=== PATIENT | male | born 1990 | race American Indian/Alaskan Native ===

== ENCOUNTER 2018-05-09 15:53 | Emergency (ER) | payer OTHER ==
[2018-05-09 16:10] VITALS: BP 133/85; PULSE 95; RESP 18; TEMP 99; O2SAT 98
--- NOTE | 2018-05-09 16:31 | ED PDOC ---
Arrival/HPI - General Chief Complaint: Abdominal Pain Time Seen by Provider: 05/09/18 16:07 EM Caveat: Uncooperative - History of Present Illness Narrative History of Present Illness (Text): 27 y/o male with PMH of schizophrenia presents to the ED c/o abdominal pain x 1 day. Pt is alert and oriented x 3 but history is incredibly vague and inconsistent. Pt repeatededly asking for food, states he has nowhere to stay. Attributes abdominal pain to hunger. Denies alcohol or drug use today. Denies SI, HI, auditory or visual hallucination, fever, chills, nausea, vomiting, diarrhea, back pain, urinary symptoms, testicular pain, testicular swelling, chest pain, SOB, or any other associated complaints. Past Medical History - Provider Review Nursing Documentation Reviewed: Yes - Psychiatric Hx Depression: Yes Hx Schizophrenia: Yes Hx Substance Use: Yes ([facility]) Family/Social History - Physician Review Nursing Documentation Reviewed: Yes Family/Social History: No Known Family HX Smoking Status: Current Some Days Smoker Hx Alcohol Use: Yes Frequency of alcohol use: Socially Hx Substance Use: Yes ([facility]) Allergies/Home Meds Allergies/Adverse Reactions: Allergies No Known Allergies Allergy (Verified 05/09/18 15:56) Home Medications: Home Meds Medication Instructions Recorded Confirmed No Known Home Med 05/09/18 05/09/18 Review of Systems - Physician Review All systems were reviewed & negative as marked: Yes - Review of Systems Systems not reviewed;Unavailable: Uncooperative Constitutional: Normal. absent: Fevers Eyes: Normal. absent: Vision Changes ENT: Normal. absent: Sore Throat, Sinus Congestion Respiratory: Normal. absent: SOB, Cough Cardiovascular: Normal. absent: Chest Pain, Palpitations Gastrointestinal: Abdominal Pain. absent: Nausea, Vomiting Genitourinary Male: Normal. absent: Dysuria, Frequency Musculoskeletal: Normal. absent: Back Pain, Neck Pain Skin: Normal. absent: Rash, Pruritis Neurological: Normal. absent: Headache, Dizziness Endocrine: Normal Hemo/Lymphatic: Normal Psychiatric: Normal Physical Exam Vital Signs Reviewed: Yes Vital Signs Temp Pulse Resp BP Pulse Ox 05/09/18 15:54 99 F 95 H 18 133/85 98 Temperature: Afebrile Blood Pressure: Normal Pulse: Regular Respiratory Rate: Normal Appearance: Positive for: Well-Appearing, Non-Toxic, Comfortable Pain Distress: None Mental Status: Positive for: Alert and Oriented X 3 - Systems Exam Head: Present: Atraumatic, Normocephalic Pupils: Present: PERRL Extroacular Muscles: Present: EOMI Conjunctiva: Present: Normal Mouth: Present: Moist Mucous Membranes Neck: Present: Normal Range of Motion. No: Meningeal Signs, MIDLINE TENDERNESS Respiratory/Chest: Present: Clear to Auscultation, Good Air Exchange. No: Respiratory Distress, Accessory Muscle Use Cardiovascular: Present: Regular Rate and Rhythm, Normal S1, S2. No: Murmurs Abdomen: Present: Tenderness (mild epigastric), Normal Bowel Sounds. No: Distention, Peritoneal Signs, Rebound, Guarding Back: No: CVA Tenderness Upper Extremity: Present: Normal ROM, NORMAL PULSES, Neurovascularly Intact, Capillary Refill < 2s Lower Extremity: Present: NORMAL PULSES, Normal ROM, Neurovascularly Intact, Capillary Refill < 2 s Neurological: Present: GCS=15, CN II-XII Intact, Speech Normal, Motor Func Grossly Intact, Normal Sensory Function, Gait Normal Skin: Present: Warm, Dry, Normal Color. No: Rashes Psychiatric: Present: Alert, Oriented x 3, Normal Insight, Normal Concentration, Normal Affect, Normal Mood Medical Decision Making ED Course and Treatment: Initial Plan: * CBC, CMP * Lipase * UA * UDS * Alcohol, salicylate, acetaminophen levels * EKG * CXR * PES evaluation - secondary to psychiatric history 1655 Patient refusing all testing. Repeatedly asking for food, states he is homeless 1700 Evaluated by ED attending Dr. Stuart, patient A&Ox3, no SI, no HI, No hallucinations or delusions. capable of making informed decisions. Ambulates with steady gait. States he will allow us to obtain bloodwork. 1715 Patient found to have eloped from ED Disposition/Present on Arrival - Present on Arrival Any Indicators Present on Arrival: No History of DVT/PE: No History of Uncontrolled Diabetes: No Urinary Catheter: No History of Decub. Ulcer: No History Surgical Site Infection Following: None - Disposition Have Diagnosis and Disposition been Completed?: No Diagnosis: Abdominal pain, Eloped from emergency department Disposition: ELOPEMENT - ER ONLY Disposition Time: 17:00 Condition: GUARDED
== END 2018-05-09 17:20 | disposition left against medical advice (07) ==
LOC: ED 15:53
DX: R10.9 Unspecified abdominal pain (principal); F20.9 Schizophrenia, unspecified